=== PATIENT | male | born 1990 | race Caucasian/White ===

== ENCOUNTER → 2017-04-15 | Outpatient (CLI) | payer BC ==
[~2017-04-15] MED LIST: AMOX-559 PO; CEPH500C24 PO; IOPAMIDOL 76% 50 ML INFUS BTL 50 ML ONE; IOPAMIDOL 76% 75 ML INFUS BTL 75 ML ONE; LOR5/325 PO; MULT-1124 PO; NS 0.9% 20 ML SDV 60 ML ONE; No Rtn Meds; PRED20TA6 PO
--- NOTE | 2017-04-15 13:12 | RADIOLOGY IMAGING REPORT ---
[place] [facility] [place] Og Cordero : 1990 MR: [id number] V: [id number] EXAM DATE: ORDERING PHYSICIAN: BELL MARTIN TECHNOLOGIST: Location: [facility] [place] Patient: Og Cordero : 1990 Visit/Account:[id number] Date of Sevice: 04/15/2017 ABDOMEN/PELVIS W/WO CONTRAST HISTORY: Abdominal and pelvic pain TECHNIQUE: Axial images acquired through the abdomen/pelvis both with and without IV contrast.. Lee nal and sagittal reformatting also performed. One of the following dose optimization techniques was utilized in the performance of this exam: Automated exposure control; adjustment of the mA and/or kV according to the patient's size; or use of an iterative reconstruction technique. Specific details can be referenced in the facility's radiology CT exam operational policy. CONTRAST: 150 mL Isovue-370 COMPARISON: None. FINDINGS: Visualized lung bases: Well-aerated Hepatobiliary: Negative. No evidence of gallstones. Normal liver. Spleen: Negative. Adrenals: Negative. Pancreas: Negative. Kidneys ureters and bladder: Kidneys and ureters are normal without evidence of stones or inflammatio n. Urinary bladder normal. Genitalia: Negative. GI: GI tract is normal in appearance. The appendix is well-visualized and unremarkable. Vessels/spaces/nodes: There is no adenopathy present. Bones/soft tissues: Negative. Additional findings: No evidence of hernias or other body wall pathology IMPRESSION: Normal abdomen/pelvis CT. Etiology of patient's pain is not identified. Report Dictated By: Jarrett Lopez MD at 04/15/2017 1:01 PM Report E-Signed By: Jarrett Lopez MD at 04/15/2017 1:08 PM WSN:[id number]
== END ==
LOC: CT 11:20
PROVIDERS: ATTEND Urology
DX: R10.84 Generalized abdominal pain (principal); N50.819 Testicular pain, unspecified
CPT/HCPCS: 74178; J7050; Q9967